=== PATIENT | female | born 1940 | race Caucasian/White ===

== ENCOUNTER 2024-03-07 11:44 | Inpatient (IN) | payer MEDICARE ==
[2024-03-07] VITALS (8 sets, daily range): BP systolic 123–145; BP diastolic 63–84; PULSE 56–82; RESP 17–18; TEMP 97.1–98.4; O2SAT 96–99
[~2024-03-07] VITALS: Ht 160 cm; Wt 77.1 kg
[2024-03-07 12:46] LABS: BASOPHILS # (AUTO) 0.1 (0.0-0.1); BASOPHILS % 0.7 % (0.0-1.0); EOSINOPHILS % 0.5 % (0.0-6.0); LYMPHOCYTES # (AUTO) 1.2 (1.0-3.2); LYMPHOCYTES % 15.2 % (18.0-39.1); MEAN CORPUSCULAR HEMOGLOBIN 26.3 pg (28-32); MEAN CORPUSCULAR HGB CONC 30.3 g/dL (31-35); MEAN CORPUSCULAR VOLUME 86.8 fL (81-99); MONOCYTES # (AUTO) 0.8 (0.2-0.8); NEUTROPHILS # (AUTO) 5.9 (2.1-6.9); PLATELET COUNT 192 x10e3/uL (140-360); RED CELL DISTRIBUTION WIDTH 15.5 % (11.7-14.4); WHITE BLOOD COUNT 8.09 x10e3/uL (4.8-10.8)
[2024-03-07 12:53] LABS: INR 1.87; PROTHROMBIN TIME 22.6 seconds (11.9-14.5)
[2024-03-07 12:54] LABS: PARTIAL THROMBOPLASTIN TIME 46.5 seconds (23.8-35.5)
[2024-03-07] MEDS ORDERED: TORSEMIDE INJ 10 MG/ML 2 ML AMP IV ONE (13:00)
[2024-03-07 13:03] LABS: ALBUMIN 3.3 g/dL (3.5-5.0); ALBUMIN/GLOBULIN RATIO 1.1 (0.8-2.0); ANION GAP 15.7 mmol/L (8-16); BILIRUBIN,TOTAL 0.6 mg/dL (0.2-1.2); CALCIUM 8.4 mg/dL (8.4-10.2); CREATININE, SERUM 1.73 mg/dL (0.57-1.11); POTASSIUM 4.7 mmol/L (3.5-5.1); TOTAL PROTEIN 6.4 g/dL (6.5-8.1)
[2024-03-07 13:09] LABS: TROPONIN I 0.019 ng/mL (0-0.300)
[2024-03-07 13:26] LABS: INFLUENZAE A&B ANTIGEN (RAPID) NEGATIVE (NEGATIVE); RESPIRATORY SYNC. VIRUS NEGATIVE (NEGATIVE)
[2024-03-07] MEDS: FUROSEMIDE INJ 10 MG/ML 4 ML VIAL IV ONE (14:08)
[2024-03-07] MEDS ORDERED: ONDANSETRON HCL INJ 2MG/ML 2ML 2 MG/ML VIAL IV PRN (17:00)
[2024-03-07] MEDS ORDERED: DEXTROSE 50% SYRINGE 50 ML IV PRN (17:00)
[2024-03-07] MEDS ORDERED: ACETAMINOPHEN 325 MG TAB PO PRN (17:00)
[2024-03-07] MEDS ORDERED: AMLODIPINE BESY10 MG PO (18:38)
[2024-03-07] MEDS ORDERED: CALCIUM 500 MG1 EAC2 PO (18:40)
[2024-03-07] MEDS ORDERED: ELIQUIS5 MG PO (18:40)
[2024-03-07] MEDS ORDERED: CICLOPIROX15 GM TOP (18:48)
[2024-03-07] MEDS ORDERED: CLOPIDOGREL75 MG PO (18:48)
[2024-03-07] MEDS ORDERED: TRICOR48 MG PO (18:49)
[2024-03-07] MEDS ORDERED: LOSARTAN POTAS100 MG PO (18:50)
[2024-03-07] MEDS ORDERED: METAMUCIL FIBE3.4 GM PO (18:53)
[2024-03-07] MEDS ORDERED: METOPROLOL TART50 MG PO (18:53)
[2024-03-07] MEDS ORDERED: METOCLOPRAMIDE10 MG PO (18:53)
[2024-03-07] MEDS ORDERED: MULTI-VITAMIN1 EACH PO (18:53)
[2024-03-07] MEDS ORDERED: NYSTATIN15 G2 TOP (18:58)
[2024-03-07] MEDS ORDERED: ROSUVASTATIN CA20 MG PO (18:58)
[2024-03-07] MEDS ORDERED: PANTOPRAZOLE SO40 MG PO (18:58)
[2024-03-07] MEDS ORDERED: TORSEMIDE20 MG PO (18:58)
[2024-03-07] MEDS ORDERED: XULTOPHY 100 UNI3 ML SQ (18:59)
[2024-03-07] MEDS ORDERED: [UNRECOGNIZED DRUG - OTHER] PO (19:09)
[2024-03-07] MEDS ORDERED: ALLEGRA-D 24 H1 EACH PO (19:10)
[2024-03-07] MEDS ORDERED: VITAMIN D3125 MCG/1 PO (19:48)
[2024-03-07] MEDS ORDERED: PSYLLIUM 6GM PACKET PO PRN (20:00)
[2024-03-07] MEDS ORDERED: ACETAMINOPHEN-1 EAC4 PO (20:17)
[2024-03-07] MEDS ORDERED: NON-FORMULARY MEDICATION (Acetaminophen With Codeine (Acetaminophen-Cod #4 Tablet) 1 TAB) PO PRN (20:30)
[2024-03-07] MEDS ORDERED: CRESTOR 10MG PO SCH (21:00)
[2024-03-07] MEDS: INSULIN LISPRO 100 UNIT/1 ML 3ML VIAL SQ SCH (21:01)
[2024-03-07] MEDS: CRESTOR 10MG PO SCH (21:03)
[2024-03-07] MEDS: NYSTATIN 15 GM POWDER UD BTL TOP SCH (21:04)
[2024-03-07] MEDS: ACETAMINOPHEN/CODEINE 300MG - 30MG TAB PO PRN (22:31)
[2024-03-07] MEDS ORDERED: Morphine 2mg Syringe 2 MG/ML SYR IV PRN (23:00)
[2024-03-08] VITALS (9 sets, daily range): BP systolic 106–143; BP diastolic 50–75; PULSE 51–78; RESP 17–20; TEMP 97.4–98.6; O2SAT 96–100
[2024-03-08 05:56] LABS: BASOPHILS # (AUTO) 0.1 (0.0-0.1); BASOPHILS % 0.6 % (0.0-1.0); EOSINOPHILS # (AUTO) 0.1 (0.0-0.4); HEMATOCRIT 34.4 % (34.2-44.1); HEMOGLOBIN 10.6 g/dL (12.0-16.0); LYMPHOCYTES # (AUTO) 1.4 (1.0-3.2); LYMPHOCYTES % 17.7 % (18.0-39.1); MEAN CORPUSCULAR HEMOGLOBIN 26.8 pg (28-32); MEAN CORPUSCULAR HGB CONC 30.8 g/dL (31-35); MEAN CORPUSCULAR VOLUME 86.9 fL (81-99); MONOCYTES # (AUTO) 0.8 (0.2-0.8); MONOCYTES % 9.6 % (4.4-11.3); NEUTROPHILS # (AUTO) 5.7 (2.1-6.9); NEUTROPHILS % 70.6 % (38.7-80.0); PLATELET COUNT 193 x10e3/uL (140-360); RED BLOOD COUNT 3.96 x10e6/uL (3.6-5.1); RED CELL DISTRIBUTION WIDTH 15.3 % (11.7-14.4); WHITE BLOOD COUNT 8.13 x10e3/uL (4.8-10.8)
[2024-03-08 06:16] LABS: ALBUMIN 3.4 g/dL (3.5-5.0); ANION GAP 12.6 mmol/L (8-16); BILIRUBIN,TOTAL 0.7 mg/dL (0.2-1.2); CALCIUM 8.7 mg/dL (8.4-10.2); CHOL/HDL RATIO 2.9 (3.0-3.6); CREATININE, SERUM 1.38 mg/dL (0.57-1.11); POTASSIUM 3.6 mmol/L (3.5-5.1); TOTAL PROTEIN 6.7 g/dL (6.5-8.1)
[2024-03-08 06:36] LABS: TROPONIN I 0.013 ng/mL (0-0.300)
[2024-03-08] MEDS: METOCLOPRAMIDE HCL 10 MG TAB PO SCH (09:06)
[2024-03-08] MEDS: MULTIVITAMINS/MINERALS TAB PO SCH (09:06)
[2024-03-08] MEDS: FENOFIBRATE 48 MG TAB PO SCH (09:06)
[2024-03-08] MEDS: PANTOPRAZOLE SOD 40 MG TABEC PO SCH (09:06)
[2024-03-08] MEDS: CLOPIDOGREL BISULFATE 75 MG TAB PO SCH (09:06)
[2024-03-08] MEDS: APIXABAN 5 MG TABLET PO SCH (09:06)
[2024-03-08] MEDS: OYST-CAL-D 500MG TABLET PO SCH (09:07)
[2024-03-08] MEDS: METOPROLOL TARTRATE 50 MG TAB PO SCH (09:07)
[2024-03-08] MEDS: FUROSEMIDE INJ 10 MG/ML 4 ML VIAL IV SCH ×2 (09:07→17:52)
[2024-03-08] MEDS: CHOLECALCIFEROL 1,000 UNIT TAB PO SCH (09:09)
[2024-03-08 15:56] LABS: TROPONIN I 0.038 ng/mL (0-0.300)
[2024-03-08] MEDS: POTASSIUM CHLORIDE 20 MEQ TAB CR PO ONE (17:53)
[2024-03-08] MEDS: SENNOSIDES 8.6 MG TAB PO SCH (20:08)
[2024-03-08] MEDS: MINERAL OIL 132 ML BTL PR ONE (22:00)
[2024-03-09] VITALS (11 sets, daily range): BP systolic 104–165; BP diastolic 56–69; PULSE 58–71; RESP 16–19; TEMP 97.4–98.4; O2SAT 97–100
[2024-03-09 06:59] LABS: ANION GAP 13.1 mmol/L (8-16); CALCIUM 9.1 mg/dL (8.4-10.2); CREATININE, SERUM 1.43 mg/dL (0.57-1.11); POTASSIUM 4.1 mmol/L (3.5-5.1)
[2024-03-10] VITALS (11 sets, daily range): BP systolic 123–173; BP diastolic 58–96; PULSE 56–70; RESP 17–20; TEMP 97.3–98.6; O2SAT 92–100
[2024-03-10] MEDS: METOLAZONE 5 MG TAB PO ONE (18:46)
[2024-03-11] VITALS (9 sets, daily range): BP systolic 148–173; BP diastolic 57–79; PULSE 54–68; RESP 17–19; TEMP 97–98.3; O2SAT 92–99
[2024-03-11 05:17] LABS: ANION GAP 16.2 mmol/L (8-16); CALCIUM 9.1 mg/dL (8.4-10.2); CREATININE, SERUM 1.39 mg/dL (0.57-1.11)
[2024-03-11 05:19] LABS: POTASSIUM 3.2 mmol/L (3.5-5.1)
[2024-03-11 05:22] LABS: BASOPHILS # (AUTO) 0.1 (0.0-0.1); EOSINOPHILS % 0.6 % (0.0-6.0); HEMATOCRIT 35.2 % (34.2-44.1); LYMPHOCYTES # (AUTO) 1.5 (1.0-3.2); LYMPHOCYTES % 20.6 % (18.0-39.1); MEAN CORPUSCULAR HEMOGLOBIN 26.5 pg (28-32); MEAN CORPUSCULAR HGB CONC 31.3 g/dL (31-35); MEAN CORPUSCULAR VOLUME 84.8 fL (81-99); MONOCYTES # (AUTO) 0.8 (0.2-0.8); MONOCYTES % 10.8 % (4.4-11.3); NEUTROPHILS # (AUTO) 4.8 (2.1-6.9); NEUTROPHILS % 66.4 % (38.7-80.0); PLATELET COUNT 193 x10e3/uL (140-360); RED BLOOD COUNT 4.15 x10e6/uL (3.6-5.1); RED CELL DISTRIBUTION WIDTH 15.4 % (11.7-14.4); WHITE BLOOD COUNT 7.14 x10e3/uL (4.8-10.8)
[2024-03-11] MEDS ORDERED: LOSARTAN POTASS25 MG PO (12:32)
[2024-03-11] MEDS ORDERED: LASIX40 MG PO (12:32)
[2024-03-11] MEDS: POTASSIUM CHLORIDE 10MEQ EA PO ONE (13:04)
[2024-03-11] MEDS ORDERED: ONDANSETRON HCL 4 MG ORAL DISINTEGRATING TAB PO PRN (13:15)
[2024-03-11] MEDS ORDERED: FUROSEMIDE 40 MG TAB PO SCH (17:00)
== END 2024-03-11 15:30 | disposition home or self-care (01) | DRG 291 ==
LOC: ER 12:18 → ERHOLD 15:40 → MED/SURG3 16:36
PROVIDERS: ADMIT Internal Medicine; ATTEND Internal Medicine
DX: I13.0 Hypertensive heart and chronic kidney disease with heart failure and stage 1 through stage 4 chronic kidney disease, or unspecified chronic kidney disease (principal); I50.33 Acute on chronic diastolic (congestive) heart failure; I48.20 Chronic atrial fibrillation, unspecified; N17.9 Acute kidney failure, unspecified; I34.0 Nonrheumatic mitral (valve) insufficiency; I25.10 Atherosclerotic heart disease of native coronary artery without angina pectoris; E11.22 Type 2 diabetes mellitus with diabetic chronic kidney disease; Z79.01 Long term (current) use of anticoagulants; N18.30 Chronic kidney disease, stage 3 unspecified; I70.1 Atherosclerosis of renal artery; K21.9 Gastro-esophageal reflux disease without esophagitis; E78.5 Hyperlipidemia, unspecified; Z11.52 Encounter for screening for COVID-19; Z79.4 Long term (current) use of insulin; Z79.02 Long term (current) use of antithrombotics/antiplatelets; Z86.73 Personal history of transient ischemic attack (TIA), and cerebral infarction without residual deficits; Z95.1 Presence of aortocoronary bypass graft; Z90.49 Acquired absence of other specified parts of digestive tract
CPT/HCPCS: 36415; 71045; 74176; 80048; 80053; 80061; 82550; 82948; 83690; 83735; 83880; 84484; 85025; 85610; 85730; 87400; 87420; 93005; 93306; 94799; 96372; 99252; 99284; J1940; J2270; U0002

== ENCOUNTER 2024-03-18 19:59 | Emergency (ER) | payer MEDICARE ==
[~2024-03-18] VITALS: Ht 160 cm; Wt 77.1 kg
[~2024-03-18 19:59] MED LIST: ACETAMINOPHEN-1 EAC4 PO; ALLEGRA-D 24 H1 EACH PO; AMLODIPINE BESY10 MG PO; CALCIUM 500 MG1 EAC2 PO; CICLOPIROX15 GM TOP; CLOPIDOGREL75 MG PO; ELIQUIS5 MG PO; LASIX40 MG PO; LOSARTAN POTAS100 MG PO; LOSARTAN POTASS25 MG PO; METAMUCIL FIBE3.4 GM PO; METOCLOPRAMIDE10 MG PO; METOPROLOL TART50 MG PO; MULTI-VITAMIN1 EACH PO; NYSTATIN15 G2 TOP; PANTOPRAZOLE SO40 MG PO; ROSUVASTATIN CA20 MG PO; TORSEMIDE20 MG PO; TRICOR48 MG PO; VITAMIN D3125 MCG/1 PO; XULTOPHY 100 UNI3 ML SQ; [UNRECOGNIZED DRUG - OTHER] PO
[2024-03-18 20:08] VITALS: PULSE 52; RESP 18; TEMP 98
[2024-03-18] MEDS ORDERED: SODIUM CHLORIDE 0.9% 1000ML 1,000 ML IV STA (20:14)
[2024-03-18] MEDS ORDERED: IOPAMIDOL 370 MG/ML 100 ML INFUS..BTL INJ ONE (20:18)
[2024-03-18 20:28] LABS: BASOPHILS # (AUTO) 0.1 (0.0-0.1); BASOPHILS % 0.7 % (0.0-1.0); EOSINOPHILS % 0.3 % (0.0-6.0); HEMATOCRIT 37.4 % (34.2-44.1); HEMOGLOBIN 11.3 g/dL (12.0-16.0); LYMPHOCYTES # (AUTO) 1.2 (1.0-3.2); LYMPHOCYTES % 10.1 % (18.0-39.1); MEAN CORPUSCULAR HEMOGLOBIN 25.9 pg (28-32); MEAN CORPUSCULAR HGB CONC 30.2 g/dL (31-35); MEAN CORPUSCULAR VOLUME 85.6 fL (81-99); MONOCYTES # (AUTO) 0.9 (0.2-0.8); MONOCYTES % 7.2 % (4.4-11.3); NEUTROPHILS # (AUTO) 9.9 (2.1-6.9); NEUTROPHILS % 81.3 % (38.7-80.0); PLATELET COUNT 189 x10e3/uL (140-360); RED BLOOD COUNT 4.37 x10e6/uL (3.6-5.1); RED CELL DISTRIBUTION WIDTH 15.8 % (11.7-14.4); WHITE BLOOD COUNT 12.15 x10e3/uL (4.8-10.8)
[2024-03-18 20:46] LABS: ALBUMIN 3.7 g/dL (3.5-5.0); ALBUMIN/GLOBULIN RATIO 1.1 (0.8-2.0); ANION GAP 16.5 mmol/L (8-16); BILIRUBIN,TOTAL 0.6 mg/dL (0.2-1.2); CALCIUM 9.9 mg/dL (8.4-10.2); CREATININE, SERUM 1.66 mg/dL (0.57-1.11); POTASSIUM 4.5 mmol/L (3.5-5.1); TOTAL PROTEIN 7.2 g/dL (6.5-8.1)
[2024-03-18] MEDS: SODIUM CHLORIDE 0.9% 1000ML 1,000 ML IV STA (20:49)
[2024-03-18 20:54] LABS: TROPONIN I 0.024 ng/mL (0-0.300)
[2024-03-18 22:38] LABS: CLARITY,URINE CLEAR (CLEAR); COLOR,URINE YELLOW (YELLOW); LEUKOCYTE ESTERASE ,URINE TRACE (NEGATIVE); NITRITE,URINE NEGATIVE (NEGATIVE); PH,URINE 6 (5 - 7); PROTEIN,URINE DIPSTICK NEGATIVE (NEGATIVE)
[2024-03-18 22:39] LABS: BILIRUBIN,URINE NEGATIVE (NEGATIVE); GLUCOSE, URINE NEGATIVE (NEGATIVE); KETONES,URINE NEGATIVE (NEGATIVE); URINE UROBILINOGEN 0.2 mg/dL (0.2 - 1)
[2024-03-18 22:50] LABS: BACTERIA,URINE FEW /HPF; EPITHELIAL CELLS,URINE FEW /LPF; RENAL EPITHELIAL CELLS,URINE FEW; TRANSITIONAL EPI CELLS,URINE FEW
[2024-03-18] MEDS ORDERED: PROTONIX20 MG PO (22:50)
[2024-03-18 23:12] VITALS: BP 134/65; O2SAT 97
== END 2024-03-18 23:10 | disposition home or self-care (01) ==
LOC: ER 20:06
DX: R10.13 Epigastric pain (principal); R07.89 Other chest pain; I70.0 Atherosclerosis of aorta; E11.65 Type 2 diabetes mellitus with hyperglycemia; K57.30 Diverticulosis of large intestine without perforation or abscess without bleeding; I10 Essential (primary) hypertension; I50.9 Heart failure, unspecified; I51.7 Cardiomegaly; Z11.52 Encounter for screening for COVID-19; R94.31 Abnormal electrocardiogram [ECG] [EKG]; Z86.73 Personal history of transient ischemic attack (TIA), and cerebral infarction without residual deficits; Z95.1 Presence of aortocoronary bypass graft
CPT/HCPCS: 36415; 71260; 74177; 80053; 81001; 82550; 83690; 83880; 84484; 85025; 93005; 99284; J7030; Q9967; U0002

== ENCOUNTER 2024-05-01 20:18 | Inpatient (IN) | payer MEDICARE ==
[~2024-05-01] VITALS: Ht 157.5 cm; Wt 76.7 kg
[~2024-05-01 20:18] MED LIST changes: +PROTONIX20 MG PO
[2024-05-01 22:53] LABS: BASOPHILS # (AUTO) 0.1 (0.0-0.1); BASOPHILS % 0.9 % (0.0-1.0); EOSINOPHILS # (AUTO) 0.1 (0.0-0.4); HEMATOCRIT 37.1 % (34.2-44.1); HEMOGLOBIN 10.8 g/dL (12.0-16.0); LYMPHOCYTES # (AUTO) 1.8 (1.0-3.2); LYMPHOCYTES % 23.4 % (18.0-39.1); MEAN CORPUSCULAR HEMOGLOBIN 23.3 pg (28-32); MEAN CORPUSCULAR HGB CONC 29.1 g/dL (31-35); MEAN CORPUSCULAR VOLUME 80.1 fL (81-99); MONOCYTES # (AUTO) 0.7 (0.2-0.8); MONOCYTES % 8.6 % (4.4-11.3); NEUTROPHILS # (AUTO) 5.2 (2.1-6.9); NEUTROPHILS % 65.7 % (38.7-80.0); PLATELET COUNT 183 x10e3/uL (140-360); RED BLOOD COUNT 4.63 x10e6/uL (3.6-5.1); RED CELL DISTRIBUTION WIDTH 18.2 % (11.7-14.4); WHITE BLOOD COUNT 7.88 x10e3/uL (4.8-10.8)
[2024-05-01 23:08] LABS: ALANINE AMINOTRANSFERASE 10 IU/L (0-55); ALBUMIN 3.3 g/dL (3.5-5.0); ALBUMIN/GLOBULIN RATIO 0.9 (0.8-2.0); ALKALINE PHOSPHATASE 47 IU/L (40-150); ANION GAP 16.1 mmol/L (8-16); BILIRUBIN,TOTAL 0.8 mg/dL (0.2-1.2); BLOOD UREA NITROGEN 28 mg/dL (7-26); BUN/CREATININE RATIO 14 (6-25); CALCIUM 8.9 mg/dL (8.4-10.2); CARBON DIOXIDE 22 mmol/L (22-29); CHLORIDE 104 mmol/L (98-107); CREATINE KINASE 83 IU/L (29-168); CREATININE, SERUM 2.03 mg/dL (0.57-1.11); EST GLOMERULAR FILTRATION RATE 24 ML/MIN (>=60); GLUCOSE 136 mg/dL (74-118); POTASSIUM 4.1 mmol/L (3.5-5.1); SODIUM 138 mmol/L (136-145); TOTAL PROTEIN 6.8 g/dL (6.5-8.1)
[2024-05-01 23:29] LABS: TROPONIN I < 0.05 ng/mL (0.0-0.40)
[2024-05-02] MEDS ORDERED: SODIUM CHLORIDE FLUSH 10 ML SYR INJ PRN (00:30)
[2024-05-02] MEDS ORDERED: HYDRALAZINE HCL 20 MG/ML VIAL IV PRN (02:30)
[2024-05-02] MEDS ORDERED: DEXTROSE 50% SYRINGE 50 ML IV PRN (02:30)
[2024-05-02] MEDS ORDERED: DOCUSATE SODIUM 100 MG CAP PO PRN (02:30)
[2024-05-02] MEDS ORDERED: MELATONIN 3 MG TAB PO PRN (02:30)
[2024-05-02] MEDS ORDERED: ONDANSETRON HCL INJ 2MG/ML 2ML 2 MG/ML VIAL IV PRN (02:30)
[2024-05-02 07:23] LABS: CREATINE KINASE 65 IU/L (29-168)
[2024-05-02 07:45] LABS: TROPONIN I < 0.05 ng/mL (0.0-0.40)
[2024-05-02] MEDS: FENOFIBRATE 48 MG TAB PO SCH (09:00)
[2024-05-02] MEDS: LORATADINE/PSEUDOEPHEDRINE 24 HR SR TAB PO SCH (09:00)
[2024-05-02] MEDS: AMLODIPINE BESYLATE 10 MG TAB PO SCH (09:57)
[2024-05-02] MEDS: METOCLOPRAMIDE HCL 10 MG TAB PO SCH (09:57)
[2024-05-02] MEDS: CLOPIDOGREL BISULFATE 75 MG TAB PO SCH (09:58)
[2024-05-02] MEDS: METOPROLOL TARTRATE 50 MG TAB PO SCH (09:58)
[2024-05-02] MEDS: PANTOPRAZOLE SOD 40 MG TABEC PO SCH (09:58)
[2024-05-02] MEDS: MULTIVITAMINS/MINERALS TAB PO SCH (09:59)
[2024-05-02] MEDS: APIXABAN 5 MG TABLET PO SCH (09:59)
[2024-05-02] MEDS: OYST-CAL-D 500MG TABLET PO SCH (09:59)
[2024-05-02] MEDS: INSULIN REGULAR, HUMAN 100 UNIT/1 ML SQ SCH (10:04)
[2024-05-02] MEDS: FUROSEMIDE INJ 10 MG/ML 4 ML VIAL IV ONE (13:22)
[2024-05-02 16:45] LABS: TROPONIN I 0.014 ng/mL (0-0.300)
[2024-05-02 20:45] VITALS: PULSE 72; RESP 20; TEMP 98
[2024-05-02] MEDS: CRESTOR 10MG PO SCH (21:09)
[2024-05-02 21:19] LABS: TOTAL PROTEIN, URINE 32.9 mg/dL (1-14)
[2024-05-02 21:55] VITALS: BP 162/53; PULSE 72; RESP 20; TEMP 97.6; O2SAT 96
[2024-05-03] VITALS (8 sets, daily range): BP systolic 144–182; BP diastolic 46–67; PULSE 55–76; RESP 18–20; TEMP 97.5–98; O2SAT 94–97
[2024-05-03 03:28] LABS: CREATININE,URINE RANDOM 51.42 mg/dL (47-110)
[2024-05-03 05:33] LABS: BASOPHILS # (AUTO) 0.1 (0.0-0.1); BASOPHILS % 0.6 % (0.0-1.0); EOSINOPHILS # (AUTO) 0.1 (0.0-0.4); HEMATOCRIT 33.9 % (34.2-44.1); HEMOGLOBIN 10.1 g/dL (12.0-16.0); LYMPHOCYTES # (AUTO) 1.4 (1.0-3.2); LYMPHOCYTES % 18.3 % (18.0-39.1); MEAN CORPUSCULAR HEMOGLOBIN 23.4 pg (28-32); MEAN CORPUSCULAR HGB CONC 29.8 g/dL (31-35); MEAN CORPUSCULAR VOLUME 78.7 fL (81-99); MONOCYTES # (AUTO) 0.8 (0.2-0.8); MONOCYTES % 10.6 % (4.4-11.3); NEUTROPHILS # (AUTO) 5.4 (2.1-6.9); PLATELET COUNT 160 x10e3/uL (140-360); RED BLOOD COUNT 4.31 x10e6/uL (3.6-5.1); WHITE BLOOD COUNT 7.83 x10e3/uL (4.8-10.8)
[2024-05-03 06:01] LABS: ANION GAP 12.3 mmol/L (8-16); BILIRUBIN,TOTAL 0.8 mg/dL (0.2-1.2); CALCIUM 8.5 mg/dL (8.4-10.2); CREATININE, SERUM 1.2 mg/dL (0.57-1.11); TOTAL PROTEIN 5.9 g/dL (6.5-8.1)
[2024-05-03 06:05] LABS: POTASSIUM 3.3 mmol/L (3.5-5.1)
[2024-05-03] MEDS ORDERED: TYLENOL#3 PO (07:52)
[2024-05-03] MEDS: ACETAMINOPHEN 325 MG TAB PO PRN (08:00)
[2024-05-03] MEDS ORDERED: ZYRTEC10 M3 PO (08:08)
[2024-05-03] MEDS ORDERED: LORATADINE 10 MG TAB PO PRN (14:00)
[2024-05-03] MEDS: HYDRALAZINE HCL 25 MG TAB PO SCH (14:57)
[2024-05-03] MEDS: FUROSEMIDE INJ 10 MG/ML 4 ML VIAL IV ONE ×2 (15:44→21:30)
[2024-05-03] MEDS: FLUCONAZOLE 200 MG/100 ML 100 ML IV ONE (15:45)
[2024-05-03] MEDS ORDERED: IPRATROPIUM BROMIDE 0.02% 2.5 ML NEB NEB PRN (20:30)
[2024-05-03] MEDS: IPRATROPIUM BROMIDE 0.02% 2.5 ML NEB ONE (21:14)
[2024-05-03] MEDS: IPRATROPIUM BROMIDE 0.02% 2.5 ML NEB NEB PRN (21:21)
[2024-05-03] MEDS: POTASSIUM CHLORIDE 20 MEQ TAB CR PO STA (21:31)
[2024-05-04] VITALS (11 sets, daily range): BP systolic 132–161; BP diastolic 46–69; PULSE 63–70; RESP 16–20; TEMP 97.2–97.8; O2SAT 94–99
[2024-05-04 07:12] LABS: ANION GAP 15.1 mmol/L (8-16); CREATININE, SERUM 1.28 mg/dL (0.57-1.11); MAGNESIUM 1.9 MG/DL (1.3-2.1); POTASSIUM 4.1 mmol/L (3.5-5.1)
[2024-05-04] MEDS ORDERED: LORATADINE/PSEUDOEPHEDRINE 24 HR SR TAB PO SCH (09:00)
[2024-05-04] MEDS: INSULIN REGULAR, HUMAN 100 UNIT/1 ML SQ ONE (10:05)
[2024-05-04] MEDS: FUROSEMIDE INJ 10 MG/ML 4 ML VIAL IV SCH (15:14)
[2024-05-04 15:26] LABS: FREE T4 (FREE THYROXINE) 1.4 ng/dL (0.8-1.8); THYROID STIMULATING HORMONE 1.439 uIU/mL (0.350-4.940)
[2024-05-04] MEDS: INSULIN LISPRO 100 UNIT/1 ML 3ML VIAL SQ SCH ×2 (16:09)
[2024-05-04] MEDS: FUROSEMIDE INJ 10 MG/ML 4 ML VIAL IV ONE (16:36)
[2024-05-04] MEDS ORDERED: FUROSEMIDE INJ 10 MG/ML 4 ML VIAL IV ONE (16:45)
[2024-05-04] MEDS: METOLAZONE 5 MG TAB PO ONE (17:19)
[2024-05-04] MEDS: MAGNESIUM/ALUMINUM/SIMETHICONE 30 ML UDC PO PRN (19:28)
[2024-05-04] MEDS: INSULIN GLARGINE 100 UNITS/ML VIAL SQ SCH (20:14)
[2024-05-05] VITALS (9 sets, daily range): BP systolic 139–158; BP diastolic 43–73; PULSE 61–77; RESP 18–22; TEMP 97.4–97.8; O2SAT 93–97
[2024-05-05 07:45] LABS: BASOPHILS # (AUTO) 0.1 (0.0-0.1); BASOPHILS % 1.2 % (0.0-1.0); EOSINOPHILS # (AUTO) 0.1 (0.0-0.4); EOSINOPHILS % 1.2 % (0.0-6.0); HEMATOCRIT 37.6 % (34.2-44.1); HEMOGLOBIN 11.1 g/dL (12.0-16.0); LYMPHOCYTES # (AUTO) 1.6 (1.0-3.2); LYMPHOCYTES % 17.6 % (18.0-39.1); MEAN CORPUSCULAR HGB CONC 29.5 g/dL (31-35); MONOCYTES % 11.2 % (4.4-11.3); NEUTROPHILS # (AUTO) 6.1 (2.1-6.9); NEUTROPHILS % 68.2 % (38.7-80.0); PLATELET COUNT 204 x10e3/uL (140-360); RED BLOOD COUNT 4.82 x10e6/uL (3.6-5.1); RED CELL DISTRIBUTION WIDTH 18.6 % (11.7-14.4); WHITE BLOOD COUNT 8.87 x10e3/uL (4.8-10.8)
[2024-05-05 08:27] LABS: ANION GAP 16.5 mmol/L (8-16); CALCIUM 9.2 mg/dL (8.4-10.2); CREATININE, SERUM 1.24 mg/dL (0.57-1.11); POTASSIUM 3.5 mmol/L (3.5-5.1)
[2024-05-05] MEDS ORDERED: HYDRALAZINE HCL50 MG PO (15:32)
[2024-05-05] MEDS: METOLAZONE 5 MG TAB PO ONE (16:53)
[2024-05-05] MEDS: SODIUM BICARBONATE 650 MG TAB PO SCH (16:53)
[2024-05-05] MEDS: DOCUSATE SODIUM 100 MG CAP PO SCH (16:53)
[2024-05-06] VITALS (11 sets, daily range): BP systolic 121–169; BP diastolic 60–65; PULSE 59–74; RESP 16–20; TEMP 97.4–97.7; O2SAT 94–98
[2024-05-06] MEDS: POLYETHYLENE GLYCOL 3350 17 GM PACK PO SCH (12:11)
[2024-05-06] MEDS: GUAIFENESIN/DEXTROMETHORPHAN LIQD 5 ML UDC PO PRN (12:11)
[2024-05-06] MEDS: TRAMADOL HCL 50 MG TAB PO ONE (12:37)
[2024-05-06] MEDS ORDERED: CEFPODOXIME PR200 MG PO (13:16)
== END 2024-05-06 20:01 | disposition home health service (06) | DRG 291 ==
LOC: ER 20:27 → ERHOLD 05-02 00:19 → IMCU 05-02 22:13 → ERHOLD 05-03 16:54 → IMCU 05-03 16:54
PROVIDERS: ADMIT Internal Medicine Critical Care Medicine; ATTEND Internal Medicine Critical Care Medicine
DX: I13.0 Hypertensive heart and chronic kidney disease with heart failure and stage 1 through stage 4 chronic kidney disease, or unspecified chronic kidney disease (principal); I50.33 Acute on chronic diastolic (congestive) heart failure; N17.9 Acute kidney failure, unspecified; J96.11 Chronic respiratory failure with hypoxia; K55.1 Chronic vascular disorders of intestine; E11.22 Type 2 diabetes mellitus with diabetic chronic kidney disease; Z99.81 Dependence on supplemental oxygen; Z95.1 Presence of aortocoronary bypass graft; I16.0 Hypertensive urgency; I08.0 Rheumatic disorders of both mitral and aortic valves; I48.91 Unspecified atrial fibrillation; J44.9 Chronic obstructive pulmonary disease, unspecified; N18.30 Chronic kidney disease, stage 3 unspecified; I25.10 Atherosclerotic heart disease of native coronary artery without angina pectoris; K59.09 Other constipation; K21.9 Gastro-esophageal reflux disease without esophagitis; Z11.52 Encounter for screening for COVID-19; E66.9 Obesity, unspecified; Z68.30 Body mass index [BMI] 30.0-30.9, adult; Z79.4 Long term (current) use of insulin; Z79.02 Long term (current) use of antithrombotics/antiplatelets; Z79.01 Long term (current) use of anticoagulants; Z86.73 Personal history of transient ischemic attack (TIA), and cerebral infarction without residual deficits; Z90.49 Acquired absence of other specified parts of digestive tract; Z90.710 Acquired absence of both cervix and uterus; Z87.891 Personal history of nicotine dependence
CPT/HCPCS: 0223U; 36415; 71045; 80048; 80053; 82550; 82570; 82948; 83036; 83690; 83735; 83880; 84156; 84439; 84443; 84484; 85025; 93005; 93306; 93970; 94640; 94799; 96372; 99252; 99284; J0696; J1450; J1815; J1940